=== PATIENT | female | born 1950 | race Caucasian/White ===

== ENCOUNTER 2017-08-02 20:42 | Emergency (ER) | payer MEDICARE, OTHER ==
[2017-08-02] MEDS: ACETAMINOPHEN 325 MG TAB PO (21:48)
== END 2017-08-03 00:21 | disposition home or self-care (01) ==
LOC: FTE 08-03 00:21
DX: J32.9 Chronic sinusitis, unspecified (principal)
CPT/HCPCS: 70450; 70486; 99285-25